=== PATIENT | female | born 1995 | race Caucasian/White ===

== ENCOUNTER 2018-01-13 17:14 | Emergency (ER) | payer BC ==
[2018-01-13 17:48] VITALS: BP 119/82
--- NOTE | 2018-01-13 18:30 | UC ---
Throat Pain/Nasal Darrian HPI - HPI Summary HPI Summary: PATIENT PRESENTS WITH SORE THROAT, PAIN WITH SWALLOWING SINCE LAST NIGHT. HAD FEVER OF 100.7. IS ALSO COMPLAINING OF MILD COUGH. NO EAR PAIN, NAUSEA OR VOMITING. - History of Current Complaint Chief Complaint: UCRespiratory Stated Complaint: SORE THROAT Time Seen by Provider: 01/13/18 17:38 Hx Obtained From: Patient Hx Last Menstrual Period: 2 weeks ago Onset/Duration: Gradual Onset, Lasting Days, Still Present Severity: Moderate Pain Intensity: 5 Pain Scale Used: 0-10 Numeric Cough: Nonproductive Associated Signs & Symptoms: Positive: Hoarseness, Fever - Allergies/Home Medications Allergies/Adverse Reactions: Allergies Allergy/AdvReac Type Severity Reaction Status Date / Time Penicillins Allergy Anaphylatic Verified 01/13/18 17:43 Shock Home Medications: Home Medications NK [No Home Medications Reported] 01/13/18 [History Confirmed 01/13/18] PMH/Surg Hx/FS Hx/Imm Hx GI/ History: Gastroesophageal Reflux - Surgical History Surgical History: None - Family History Known Family History: Positive: Hypertension - Social History Alcohol Use: Occasionally Substance Use Type: None Smoking Status (MU): Light Every Day Tobacco Smoker Amount Used/How Often: 2-3 cigs per day Review of Systems Constitutional: Fever, Fatigue ENT: Sore Throat Respiratory: Cough Cardiovascular: Negative Gastrointestinal: Negative All Other Systems Reviewed And Are Negative: Yes Physical Exam Triage Information Reviewed: Yes Appearance: Well-Appearing, No Pain Distress, Well-Nourished Vital Signs: Initial Vital Signs Temp 98.3 F 01/13/18 17:43 Pulse 81 01/13/18 17:43 Resp 18 01/13/18 17:43 BP 119/82 01/13/18 17:43 Pulse Ox 96 01/13/18 17:43 Vital Signs Reviewed: Yes Eyes: Positive: Conjunctiva Clear ENT: Positive: Hearing grossly normal, Pharyngeal erythema, TMs normal, Hoarse voice. Negative: Tonsillar swelling, Tonsillar exudate Neck: Positive: Supple, Nontender, No Lymphadenopathy Respiratory Exam: Normal Cardiovascular Exam: Normal Abdomen Description: Positive: Soft Musculoskeletal: Positive: No Edema Neurological: Positive: Alert Psychological: Positive: Age Appropriate Behavior Skin: Negative: rashes Diagnostics - Laboratory Diagnostic Studies Completed/Ordered: STREP NEG Throat Pain/Nasal Course/Dx - Differential Dx/Diagnosis Provider Diagnoses: ACUTE PHARYNGITIS Discharge - Sign-Out/Discharge Documenting (check all that apply): Discharge/Admit/Transfer - Discharge Plan Condition: Stable Disposition: HOME Patient Education Materials: Pharyngitis (ED) Forms: *Work Release Referrals: No Primary Care Phys,NOPCP [Primary Care Provider] - Additional Instructions: STREP TEST NEGATIVE TODAY. YOUR SYMPTOMS ARE LIKELY VIRALLY MEDIATED AND SHOULD RESOLVE ON THEIR OWN WITH TIME. NO INDICATION FOR ANTIBIOTICS AT PRESENT. REST, HYDRATE, OTC MEDS NEEDED. SEEK FOLLOW-UP IF YOU ARE NOT IMPROVING OVER THE NEXT 1-2 WEEKS. CALL THE NUMBER BELOW FOR ASSISTANCE IN ESTABLISHING WITH A PCP An additional resource available to assist in finding the appropriate physician for your health care needs is the [facility] ([facility]). You may contact them by calling [phone]. - Billing Disposition and Condition Condition: STABLE Disposition: HOME
== END 2018-01-13 18:38 | disposition home or self-care (01) ==
LOC: UCEAST 17:14
DX: J02.9 Acute pharyngitis, unspecified (principal); R50.9 Fever, unspecified; R05 Cough; R53.83 Other fatigue; K21.9 Gastro-esophageal reflux disease without esophagitis; Z88.0 Allergy status to penicillin; F17.210 Nicotine dependence, cigarettes, uncomplicated
CPT/HCPCS: 87651; 99201; G0463

== ENCOUNTER 2018-01-14 10:51 | Emergency (ER) | payer SELFPAY ==
[2018-01-14 11:47] LABS: Urine Appearance Clear; Urine Blood Negative (Negative); Urine Color Yellow; Urine Ketones Negative (Negative); Urine Protein Negative (Negative); Urine Specific Gravity 1.025 (1.010-1.030); Urine Urobilinogen Negative (Negative)
[2018-01-14 12:46] VITALS: BP 125/98
--- NOTE | 2018-01-14 13:06 | RAD ---
Indication: Left shoulder pain. 4 views of left shoulder demonstrates no fracture. No other bone or joint abnormality is identified. IMPRESSION: No fracture of left shoulder is noted.
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
== END 2018-01-14 12:47 | disposition home or self-care (01) ==
LOC: ED 10:51 → MERGE 10:51 → ED 12:47
DX: M25.512 Pain in left shoulder (principal); V47.5XXA Car driver injured in collision with fixed or stationary object in traffic accident, initial encounter; Y92.410 Unspecified street and highway as the place of occurrence of the external cause
CPT/HCPCS: 36415; 81003; 84702; 99282

== ENCOUNTER 2018-02-21 16:25 | Emergency (ER) | payer BC ==
[2018-02-21] MEDS ORDERED: Ketorolac INJ* 60 MG/2 ML VIAL IM ONE (16:59)
[2018-02-21 17:11] LABS: ABS Basophils 0.1 10^3/ul (0-0.2); ABS Eosinophils 0.1 10^3/ul (0-0.6); ABS Lymphocytes 1.7 10^3/ul (1.0-4.8); ABS Monocytes 0.4 10^3/ul (0-0.8); ABS Neutrophils 4.6 10^3/ul (1.5-7.7); ABS Nucleated RBC 0 10^3/ul; Eosinophil % 1.3 % (0-6); Hematocrit 42 % (35-47); Hemoglobin 14.3 g/dl (12.0-16.0); Lymphocyte % 25.1 % (25-47); Mean Corpuscular HGB Conc 34 g/dl (31-36); Mean Corpuscular Hemoglobin 31 pg (27-31); Mean Corpuscular Volume 90 fL (80-97); Mean Platelet Volume 11.2 um3 (7.4-10.4); Nucleated Red Blood Cells % 0; Platelet Count 182 10^3/ul (150-450); Red Blood Count 4.68 10^6/ul (4.00-5.40); Red Cell Distribution Width 13 % (10.5-15)
--- NOTE | 2018-02-21 17:15 | ED ---
GI/ HPI - HPI Summary HPI Summary: Patient is a 22-year-old female with a history of dysmenorrhea and menorrhagia which had improved previously after starting OCP through her [facility]. She states she had not had her menstrual cycle for approximately 2 weeks when she forgot to take her dose of contraceptive and immediately following this developed severe cramping which is diffuse across the lower abdomen, low back pain described as cramping and vaginal bleeding. She comes today with a concern for worsening dysmenorrhea, passing some clots and concern for endometriosis. She denies any headache, fatigue, shortness of breath or chest pain. Denies any other symptoms at this time. She has taken extra strength Midol without relief. Denies any nausea, constipation, diarrhea or vomiting. Vital signs are stable, denies fever or other systemic symptoms. - History of Current Complaint Chief Complaint: EDAbdPain Time Seen by Provider: 02/21/18 16:45 Stated Complaint: ABD CRAMPS Hx Obtained From: Patient Hx Last Menstrual Period: 2 weeks ago Onset/Duration: Started Hours Ago Timing: Constant Severity: Moderate Current Severity: Moderate Pain Intensity: 7 Location of Pain: Other - diffuse lower abd Pain Characteristics: Cramping Associated Signs and Symptoms: Positive: Other: - vaginal bleeding Aggravating Factor(s): Nothing Alleviating Factor(s): Nothing - Risk Factors GI Bleed Risk Factor(s): Negative Spontaneous AB Risk Factor(s): Negative Placental Abruption Risk Factor(s): Negative Ovarian Torsion Risk Factor(s): Reproductive Age - Allergy/Home Medications Allergies/Adverse Reactions: Allergies Allergy/AdvReac Type Severity Reaction Status Date / Time Penicillins Allergy Anaphylatic Verified 02/21/18 16:32 Shock PMH/Surg Hx/FS Hx/Imm Hx Previously Healthy: Yes Endocrine/Hematology History: Denies: Hx Diabetes Cardiovascular History: Denies: Hx Hypertension Sensory History: Denies: Hx Deafness - Immunization History Hx Pertussis Vaccination: No Immunizations Up to Date: Unable to Obtain/Confirm Infectious Disease History: No Infectious Disease History: Denies: Traveled Outside the [place] in Last 30 Days - Family History Known Family History: Positive: Hypertension, Diabetes, Other - cancer - testicular, breast, skin - Social History Occupation: Employed Part-time Lives: With Family Alcohol Use: Rare Hx Substance Use: No Substance Use Type: Reports: None Hx Tobacco Use: Yes Smoking Status (MU): Current Every Day Smoker Amount Used/How Often: 2-3 cigs per day Review of Systems Constitutional: Negative Negative: Fever, Chills, Fatigue, Skin Diaphoresis Negative: Palpitations, Chest Pain Negative: Shortness Of Breath, Cough Positive: Abdominal Pain. Negative: Vomiting, Diarrhea, Nausea Genitourinary: Negative Positive: no symptoms reported, see HPI, other - vaginal bleeding Skin: Negative Neurological: Negative All Other Systems Reviewed And Are Negative: Yes Physical Exam Triage Information Reviewed: Yes Vital Signs On Initial Exam: Initial Vitals Temp Pulse Resp BP Pulse Ox 98.3 F 95 16 126/80 98 02/21/18 16:25 02/21/18 16:25 02/21/18 16:25 02/21/18 16:25 02/21/18 16:25 Vital Signs Reviewed: Yes Appearance: Positive: Well-Appearing, Well-Nourished Skin: Positive: Warm, Skin Color Reflects Adequate Perfusion Head/Face: Positive: Normal Head/Face Inspection Eyes: Positive: EOMI, XI, Conjunctiva Clear Neck: Positive: Supple, No Lymphadenopathy Respiratory/Lung Sounds: Positive: Clear to Auscultation, Breath Sounds Present Cardiovascular: Positive: Normal, RRR, Pulses are Symmetrical in both Upper and Lower Extremities Abdomen Description: Positive: Soft, Other: - abdominal pain - diffuse without masses, hernia, guarding or distension Musculoskeletal: Positive: Normal, Strength/ROM Intact Neurological: Positive: Sensory/Motor Intact, Speech Normal Psychiatric: Positive: Normal, Affect/Mood Appropriate AVPU Assessment: Alert Diagnostics - Vital Signs Vital Signs Temp Pulse Resp BP Pulse Ox 02/21/18 16:25 98.3 F 95 16 126/80 98 - Laboratory Result Diagrams: 02/21/18 17:02 02/21/18 17:02 Lab Statement: Any lab studies that have been ordered have been reviewed, and results considered in the medical decision making process. GIGU Course/Dx - Course Course Of Treatment: Patient is complaining of diffuse lower cramping abdominal pain with her menses cycle. Discussed with patient that her pain is in accordance with dysmenorrhea. Patient agrees. I have agreed to provide Toradol as a prostaglandin for attempted relief of symptoms and she agrees. negative. Labs obtained as she has quantify the amount of blood loss over the past 2 days as "heavy". However, she will be referred to [facility] to further evaluate her symptoms. - Diagnoses Differential Diagnoses - Female: Other - menorrhagia, dysmenorrhea, endometriosis, OCP misuse Provider Diagnoses: Dysmenorrhea Discharge - Sign-Out/Discharge Documenting (check all that apply): Discharge/Admit/Transfer - Discharge Plan Condition: Stable Disposition: HOME Prescriptions: Ketorolac TAB * [Toradol TAB *] 10 mg PO Q6H #16 tab traMADol TAB* [Ultram*] 50 mg PO Q8H PRN #12 tab MDD 3 PRN Reason: Pain Patient Education Materials: Dysmenorrhea (ED), Menorrhagia (ED) Forms: *Work Release Referrals: Juan Carlos Hill MD [Medical Doctor] - No Primary Care Phys,NOPCP [Primary Care Provider] - Additional Instructions: Please call OBGYN for appt. Toradol may be used up to four times daily for pain For pain not well controlled with Toradol, use tramadol up to three times daily Do not use Ibuprofen, Naproxen, Motrin or other NSAIDS while taking Toradol Heat and hot baths/showers will help with discomfort Soaking through 1 pad per hour - you need to return to the ED Continue on your OCP - Billing Disposition and Condition Condition: STABLE Disposition: Home
[2018-02-21 17:34] LABS: EGFR Non-African American 56.3 (>60)
[2018-02-21 18:00] VITALS: BP 110/72
== END 2018-02-21 17:45 | disposition home or self-care (01) ==
LOC: ED 16:25
DX: N94.6 Dysmenorrhea, unspecified (principal); Z88.0 Allergy status to penicillin; F17.210 Nicotine dependence, cigarettes, uncomplicated
CPT/HCPCS: 36415; 80053; 84702; 85025; 96372; 99282; J1885

== ENCOUNTER 2018-03-19 20:52 | Emergency (ER) | payer SELFPAY ==
[2018-03-19] MEDS ORDERED: PPD test dose* 5 TU/0.1 ML TEST (*USE PPD ORDER SET*) ONE (21:04)
== END 2018-03-19 21:20 | disposition home or self-care (01) ==
LOC: UCEAST 20:52
DX: Z11.1 Encounter for screening for respiratory tuberculosis (principal)
CPT/HCPCS: 99201; G0463